=== PATIENT | female | born 1980 | race Caucasian/White ===

== ENCOUNTER 2018-12-17 18:36 | Emergency (ER) | payer OTHER ==
[~2018-12-17] VITALS: Ht 165.1 cm; Wt 68.0 kg
[~2018-12-17 18:36] MED LIST: DESV50 PO
== END 2018-12-17 20:08 | disposition home or self-care (01) ==
LOC: ER 18:36
DX: S51.812A Laceration without foreign body of left forearm, initial encounter (principal); Z88.0 Allergy status to penicillin; Z79.899 Other long term (current) drug therapy; F41.9 Anxiety disorder, unspecified; F17.210 Nicotine dependence, cigarettes, uncomplicated; W26.0XXA Contact with knife, initial encounter
CPT/HCPCS: 12002; 99282-25

== ENCOUNTER 2018-12-27 10:30 | Emergency (ER) | payer OTHER ==
[~2018-12-27] VITALS: Ht 165.1 cm; Wt 72.6 kg
[2018-12-27] MEDS ORDERED: Bactrim Ds Tab1 EACH PO (11:09)
== END 2018-12-27 11:11 | disposition home or self-care (01) ==
LOC: ER 10:30
DX: S51.812D Laceration without foreign body of left forearm, subsequent encounter (principal); L03.114 Cellulitis of left upper limb; Z88.0 Allergy status to penicillin; Z91.048 Other nonmedicinal substance allergy status; F17.210 Nicotine dependence, cigarettes, uncomplicated

== ENCOUNTER 2019-04-11 19:01 | Emergency (ER) | payer OTHER ==
[~2019-04-11] VITALS: Ht 165.1 cm; Wt 72.6 kg
[~2019-04-11 19:01] MED LIST changes: +Bactrim Ds Tab1 EACH PO
== END 2019-04-11 21:10 | disposition home or self-care (01) ==
LOC: ER 19:01
DX: S81.012A Laceration without foreign body, left knee, initial encounter (principal); J45.909 Unspecified asthma, uncomplicated; F41.9 Anxiety disorder, unspecified; F17.210 Nicotine dependence, cigarettes, uncomplicated; Z88.0 Allergy status to penicillin; W19.XXXA Unspecified fall, initial encounter
CPT/HCPCS: 12001; 99283-25

== ENCOUNTER 2023-07-19 22:01 | Emergency (ER) | payer BC ==
[~2023-07-19] VITALS: Ht 165.1 cm; Wt 77.1 kg
[2023-07-19 22:05] VITALS: BP 137/96
[2023-07-19] MEDS ORDERED: CEPH500 PO (23:32)
== END 2023-07-19 23:59 | disposition home or self-care (01) ==
LOC: ER 22:01
DX: S62.665B Nondisplaced fracture of distal phalanx of left ring finger, initial encounter for open fracture (principal); J45.909 Unspecified asthma, uncomplicated; F17.210 Nicotine dependence, cigarettes, uncomplicated; Z88.0 Allergy status to penicillin; Z91.048 Other nonmedicinal substance allergy status; W23.0XXA Caught, crushed, jammed, or pinched between moving objects, initial encounter
CPT/HCPCS: 12001; 73130; 99283-25; A9270

== ENCOUNTER → 2023-12-27 | Outpatient (CLI) | payer BC ==
[~2023-12-27] MED LIST changes: +CEPH500 PO
[2024-01-02 11:14] LABS: HPV HIGH RISK BY TMA Not Detected; HPV SOURCE Cervical
== END | disposition home or self-care (01) ==
LOC: LAB SHORT 18:30 → LAB 18:30
PROVIDERS: Family Medicine
DX: Z01.419 Encounter for gynecological examination (general) (routine) without abnormal findings (principal)
CPT/HCPCS: 87624; G0123